=== PATIENT | female | born 1995 | race Caucasian/White ===

== ENCOUNTER 2021-10-16 12:26 | Emergency (ER) | payer MEDICAID ==
[~2021-10-16] VITALS: Ht 162.6 cm; Wt 71.7 kg
[2021-10-16 12:41] VITALS: BP 131/91
[2021-10-16] MEDS ORDERED: IBUP-2213 PO (13:08)
[2021-10-16] MEDS ORDERED: CYCL-711 PO (13:08)
[2021-10-16 13:59] VITALS: BP 131/91
--- NOTE | 2021-10-16 13:59 | NUR ---
Patient discharged with v/s stable. Written and verbal after care instructions given and explained. Patient alert, oriented and verbalized understanding of instructions. Ambulatory with steady gait. All questions addressed prior to discharge. ID band removed. Patient advised to follow up with PMD. Rx of FLEXERIL AND IBUPROFEN given. Patient educated on indication of medication including possible reaction and side effects. Opportunity to ask questions provided and answered.
--- NOTE | 2021-10-16 13:59 | NUR ---
PT REFUSED URINE TEST
== END 2021-10-16 13:59 | disposition home or self-care (01) ==
LOC: MED 12:26
DX: M54.50 Low back pain, unspecified (principal); L98.9 Disorder of the skin and subcutaneous tissue, unspecified; Z79.899 Other long term (current) drug therapy; V49.9XXA Car occupant (driver) (passenger) injured in unspecified traffic accident, initial encounter; Y93.89 Activity, other specified; Y92.411 Interstate highway as the place of occurrence of the external cause
CPT/HCPCS: 99283